=== PATIENT | male | born 1960 | race Caucasian/White ===

== ENCOUNTER → 2016-07-21 | Outpatient (CLI) | payer BC ==
--- NOTE | 2016-07-21 13:20 | XCELERA REPORT ---
[address] [address] Lower Extremity Arterial Evaluation Name: LYNN RICO Age: 56 yrs Gender: Male : 1960 Patient Status: Outpatient Patient Location: Study Date: 07/21/2016 10:13 AM Procedure: A color flow and duplex scan of the lower extremity arteries was performed bilaterally with velocity and waveform anaylsis. Ankle brachial indicies performed. Reason For Study: PVD Ordering Physician: TYSON CASTRO Performed By: Maurice Branch Measurements and Calculations Right Left AUTO DETAILER PSV 191.5 164.0 cm/sec Prox PFA PSV -170.9 -172.9 cm/sec Prox SFA PSV -98.1 96.7 cm/sec Mid SFA PSV 493.2 cm/sec Dist SFA PSV -147.3 -138.3 cm/sec Dist Pop A PSV 40.9 78.1 cm/sec Dist MANUELA PSV 55.0 85.4 cm/sec Dist HUMAN RESOURCE ASSISTANT PSV -65.2 -98.2 cm/sec [place] Pedis PSV 35.6 126.4 cm/sec Right Side Arterial Evaluation Normal velocity and biphasic waveforms noted in the Common Femoral artery. Occluded Femoral, with monophasic reconstitution to the infrageniculate vessels. With significant attenuation, spectral broadening. Occlusion at the Femoral artery. Ankle Brachial index is 0.69. Left Side Arterial Evaluation Normal velocity and biphasic waveforms noted in the Common Femoral artery. Triphasic Deep Femoral. Stenotic Femoral, monophasic reconstitution to the infrageniculate vessels. With quite well preserved velocity, moderate spectral broadening. Occlusion at the Femoral artery. Ankle Brachial index is 0.92. Interpretation Summary Severe hemodynamically significant lesions in the bilateral lower extremities, on duplex imaging, at rest. Qualitatively worse on the right. GRACIE's seem optimistic. : TYSON CASTRO > Wilder Martínez
== END ==
LOC: SP 09:45
PROVIDERS: ATTEND Podiatrist Foot Surgery
DX: I73.9 Peripheral vascular disease, unspecified (principal)
CPT/HCPCS: 93925